=== PATIENT | male | born 1930 | race Caucasian/White ===

== ENCOUNTER 2016-07-18 19:59 | Inpatient (IN) | payer OTHER ==
[~2016-07-18] VITALS: Ht 177.8 cm; Wt 40.8 kg
[2016-07-19 00:41] LABS: HEMOGLOBIN 14.6 gm/dl (14.0-17.5); RED BLOOD COUNT 4.94 M/UL (4.20-5.50); WHITE BLOOD COUNT 12.3 K/UL (4.5-11.0)
[2016-07-19] MEDS ORDERED: SOTALOL80 MG PO (04:52)
[2016-07-19] MEDS ORDERED: DONEPEZIL HCL10 MG PO (04:52)
[2016-07-19] MEDS ORDERED: ALPHAGAN P OP SO5 ML OP (04:56)
[2016-07-19] MEDS ORDERED: TRUSOPT 2% OP S10 ML OU (04:57)
[2016-07-19] MEDS ORDERED: AVODART 0.5 MG0.5 MG PO (04:58)
[2016-07-19] MEDS ORDERED: FUROSEMIDE40 MG PO (04:59)
[2016-07-19] MEDS ORDERED: LATANOPROST2.5 ML OP (05:00)
[2016-07-19] MEDS ORDERED: ELIQUIS5 MG PO (05:02)
[2016-07-19] MEDS ORDERED: LISINOPRIL20 MG PO (05:02)
[2016-07-19] MEDS ORDERED: POTASSIUM20 MEQ/15 PO (05:08)
[2016-07-20 06:34] LABS: BUN/CREATININE RATIO 25 (0-10)
[2016-07-20] MEDS ORDERED: ROXANOL SOLN20 MG/ML SL (14:36)
== END 2016-07-20 16:00 | DRG 535 ==
LOC: ER1 19:59 → M/S 07-19 02:56 → ZEROF 07-19 02:56 → M/S 07-19 04:21
PROVIDERS: Student in an Organized Health Care Education/Training Program; ADMIT Internal Medicine
DX: S72.012A Unspecified intracapsular fracture of left femur, initial encounter for closed fracture (principal); N18.6 End stage renal disease; E87.0 Hyperosmolality and hypernatremia; Z68.1 Body mass index [BMI] 19.9 or less, adult; E44.0 Moderate protein-calorie malnutrition; W18.30XA Fall on same level, unspecified, initial encounter; Y92.009 Unspecified place in unspecified non-institutional (private) residence as the place of occurrence of the external cause; E86.0 Dehydration; I48.2 Chronic atrial fibrillation; Z66 Do not resuscitate; Z51.5 Encounter for palliative care; F32.9 Major depressive disorder, single episode, unspecified; Z79.01 Long term (current) use of anticoagulants; Z79.899 Other long term (current) drug therapy; Z82.49 Family history of ischemic heart disease and other diseases of the circulatory system; G30.9 Alzheimer's disease, unspecified; F02.80 Dementia in other diseases classified elsewhere, unspecified severity, without behavioral disturbance, psychotic disturbance, mood disturbance, and anxiety
CPT/HCPCS: 29530; 36415; 51702; 70450; 71010; 72125; 73522; 73552; 80048; 80053; 81001; 82550; 82553; 83605; 83874; 84484; 85025; 87086; 93005; 99285; J1650; J2270; J7030